=== PATIENT | female | born 1995 | race Hispanic/Latino ===

== ENCOUNTER 2022-09-13 09:08 | Outpatient (CLI) | payer OTHER | END 2022-09-13 09:09 | disposition home or self-care (01) | LOC: CSHRAD 09:08 | PROVIDERS: ATTEND Chiropractor | DX: M19.90 Unspecified osteoarthritis, unspecified site (principal); M46.1 Sacroiliitis, not elsewhere classified | CPT/HCPCS: 72170 ==